=== PATIENT | female | born 1950 | race Caucasian/White ===

== ENCOUNTER → 2024-07-05 | Outpatient (CLI) | payer MEDICARE, MEDICAID, SELFPAY ==
[2024-07-05 10:09] LABS: Collection Type, Urine Clean Catch
[2024-07-05 10:36] LABS: Bilirubin,Urine Negative (Negative); Blood,Urine Negative (Negative); Clarity,Urine Clear (Clear/Hazy); Color,Urine Lt-Yellow (Lt Yel-Yel); Glucose, Urine Negative (Negative); Ketones,Urine Negative (Negative); Leukocyte Esterase,Urine Positive (Negative); Nitrite,Urine Negative (Negative); Protein,Urine 1+ (Neg - Trace); RBC,Urine 1 /hpf (0-3); Specific Gravity,Urine 1.017 (1.001-1.035); Squamous Epithelial Cell,Urine < 1 /hpf (0-5); Urobilinogen,Urine Negative mg/dL (0.0-1.0); WBC,Urine 2 /hpf (0-5)
[2024-07-05 10:47] LABS: Glucose Estimated Average 151 mg/dL (80-131); Hemoglobin A1C 6.9 % Hgb (4.8-6.0)
[2024-07-05 10:50] LABS: Parathyroid Hormone Intact 55.6 pg/ml (18.5-88.0)
[2024-07-05 10:54] LABS: Vitamin D 25 Hydroxy Total 86.5 ng/mL (7.3-40.2)
[2024-07-05 10:57] LABS: Albumin, Serum 4.3 gm/dL (3.4-4.8); Anion Gap 9 (7-16); BUN/Creatinine Ratio 26 Ratio (12-20); Blood Urea Nitrogen 34 mg/dL (9-23); Calcium 9.9 mg/dL (8.3-10.6); Calcium (Corrected) 9.9 mg/dL (8.5-10.1); Carbon Dioxide 25.9 mMol/L (20.0-31.0); Cardiac Risk Estimate 7.3 RATIO (3.7-5.6); Chloride 104 mMol/L (98-107); Cholesterol 248 mg/dL (132-200); Creatinine (Component) 1.3 mg/dL (0.6-1.3); Glucose 165 mg/dL (74-106); HDL Cholesterol 34 mg/dL (40-60); LDL Cholesterol,Calculated 184 mg/dL (0-130); Osmolality,Calculated 289 (275-295); Phosphorous 4.6 mg/dL (2.4-5.1); Potassium 4.7 mMol/L (3.4-5.1); Sodium 139 mMol/L (136-145); Triglycerides 148 mg/dL (30-150); eGFR 43 See Note
[2024-07-05 11:15] LABS: Creatinine MALB Rnd Ur 64 mg/dL (30-125); Microalbumin Creat Ratio 516 mg/gCrea (<30); Microalbumin, Random Urine 330 mg/L (0-300)
== END | disposition home or self-care (01) ==
LOC: COPL 09:17
PROVIDERS: PCP Internal Medicine; Referring Provider Internal Medicine; Visit Provider Internal Medicine
DX: I12.9 Hypertensive chronic kidney disease with stage 1 through stage 4 chronic kidney disease, or unspecified chronic kidney disease (principal); E11.22 Type 2 diabetes mellitus with diabetic chronic kidney disease; N18.30 Chronic kidney disease, stage 3 unspecified; E78.5 Hyperlipidemia, unspecified
CPT/HCPCS: 36415; 80061; 80069; 81001; 82043; 82306; 82570; 83036; 83970

== ENCOUNTER → 2024-07-13 | Outpatient (CLI) | payer MEDICARE, MEDICAID, SELFPAY ==
[2024-07-13 09:43] LABS: Anion Gap 8 (7-16); BUN/Creatinine Ratio 20 Ratio (12-20); Blood Urea Nitrogen 24 mg/dL (9-23); Calcium 9.2 mg/dL (8.3-10.6); Carbon Dioxide 24.6 mMol/L (20.0-31.0); Chloride 111 mMol/L (98-107); Creatinine (Component) 1.2 mg/dL (0.6-1.3); Glucose 94 mg/dL (74-106); Osmolality,Calculated 290 (275-295); Potassium 4.4 mMol/L (3.4-5.1); Sodium 144 mMol/L (136-145); eGFR 48 See Note
== END | disposition home or self-care (01) ==
PROVIDERS: PCP Internal Medicine; Referring Provider Internal Medicine; Visit Provider Internal Medicine
DX: I25.10 Atherosclerotic heart disease of native coronary artery without angina pectoris (principal); E78.5 Hyperlipidemia, unspecified
CPT/HCPCS: 36415; 80048

== ENCOUNTER → 2024-08-07 | Outpatient (CLI) | payer MEDICARE, MEDICAID, SELFPAY | END | disposition home or self-care (01) | PROVIDERS: PCP Internal Medicine; Referring Provider Internal Medicine; Visit Provider Internal Medicine | DX: Z53.8 Procedure and treatment not carried out for other reasons (principal) ==

== ENCOUNTER → 2024-08-14 | Outpatient (CLI) | payer MEDICARE, MEDICAID, SELFPAY ==
[2024-08-14 10:54] LABS: Anion Gap 7 (7-16); BUN/Creatinine Ratio 23 Ratio (12-20); Blood Urea Nitrogen 27 mg/dL (9-23); Calcium 9.6 mg/dL (8.3-10.6); Carbon Dioxide 24.5 mMol/L (20.0-31.0); Chloride 109 mMol/L (98-107); Creatinine (Component) 1.2 mg/dL (0.6-1.3); Glucose 137 mg/dL (74-106); Osmolality,Calculated 286 (275-295); Potassium 4.8 mMol/L (3.4-5.1); Sodium 140 mMol/L (136-145); eGFR 48 See Note
== END | disposition home or self-care (01) ==
LOC: COPL 09:43
PROVIDERS: PCP Internal Medicine; Referring Provider Internal Medicine; Visit Provider Internal Medicine
DX: I25.10 Atherosclerotic heart disease of native coronary artery without angina pectoris (principal); E78.5 Hyperlipidemia, unspecified
CPT/HCPCS: 36415; 80048

== ENCOUNTER → 2024-08-18 | Outpatient (CLI) | payer MEDICARE, MEDICAID, SELFPAY | END | disposition home or self-care (01) | LOC: SCAT 12:21 | PROVIDERS: PCP Internal Medicine; Referring Provider Internal Medicine; Visit Provider Internal Medicine | DX: Z53.8 Procedure and treatment not carried out for other reasons (principal) ==

== ENCOUNTER → 2024-08-28 | Outpatient (CLI) | payer MEDICARE, MEDICAID, SELFPAY ==
[2024-08-28 09:28] LABS: Basophils # (Auto) 0.1 Thou/mm3 (0.0-0.2); Basophils % (Auto) 2 % (0-2.5); Eosinophils # (Auto) 0.6 Thou/mm3 (0.0-0.5); Eosinophils % (Auto) 8 % (0-10); Hematocrit 36.6 % (36.0-46.0); Hemoglobin 12.3 g/dL (12.0-16.0); Immature Granulocytes % (Auto) 1 % (0-0); Immature Granulocytes Auto 0.04 Thou/mm3 (0.00-0.00); Lymphocytes # (Auto) 2.7 Thou/mm3 (1.0-4.8); Lymphocytes % (Auto) 36 % (10-50); Mean Corpuscular HGB Conc 33.6 g/dl (31.0-37.0); Mean Corpuscular Hemoglobin 31.5 pg (25.0-35.0); Mean Corpuscular Volume 94 fL (80-100); Monocytes # (Auto) 0.8 Thou/mm3 (0.0-0.8); Monocytes % (Auto) 10 % (0-12); Neutrophils # (Auto) 3.3 Thou/mm3 (1.8-7.7); Neutrophils % (Auto) 45 % (37-80); Nucleated Red Blood Cell % 0 /100 WBC (0); Platelet Count 315 Thou/mm3 (140-440); RDW Standard Deviation 44.6 fL (36.4-46.3); White Blood Count 7.5 Thou/mm3 (3.6-11.0)
[2024-08-28 09:31] LABS: Collection Type, Urine Clean Catch
[2024-08-28 09:54] LABS: Vitamin B12 833 pg/mL (211-911); Vitamin D 25 Hydroxy Total 51.2 ng/mL (7.3-40.2)
[2024-08-28 10:12] LABS: Alanine Aminotransferase 10 U/L (10-49); Albumin, Serum 3.8 gm/dL (3.4-4.8); Albumin/Globulin Ratio 1.4 (1.2-2.2); Alkaline Phosphatase 68 U/L (46-116); Anion Gap 6 (7-16); Aspartate Amino Transferase < 8 U/L (0-34); BUN/Creatinine Ratio 24 Ratio (12-20); Bilirubin,Total 0.2 mg/dL (0.3-1.2); Blood Urea Nitrogen 29 mg/dL (9-23); Calcium 9.5 mg/dL (8.3-10.6); Calcium (Corrected) 9.7 mg/dL (8.5-10.1); Carbon Dioxide 25.4 mMol/L (20.0-31.0); Cardiac Risk Estimate 6.6 RATIO (3.7-5.6); Chloride 106 mMol/L (98-107); Cholesterol 263 mg/dL (132-200); Creatinine (Component) 1.2 mg/dL (0.6-1.3); Globulin 2.7 gm/dL (2.3-3.5); Glucose 132 mg/dL (74-106); HDL Cholesterol 40 mg/dL (40-60); LDL Cholesterol,Calculated 185 mg/dL (0-130); Osmolality,Calculated 281 (275-295); Potassium 4.9 mMol/L (3.4-5.1); Sodium 137 mMol/L (136-145); Thyroid Stimulating Hormone 5.09 uIU/mL (0.55-4.78); Total Protein 6.5 gm/dL (5.7-8.2); Triglycerides 192 mg/dL (30-150); Uric Acid 6.2 mg/dL (3.1-7.8); eGFR 48 See Note
[2024-08-28 10:29] LABS: Bilirubin,Urine Negative (Negative); Blood,Urine Negative (Negative); Clarity,Urine Clear (Clear/Hazy); Color,Urine Colorless (Lt Yel-Yel); Glucose, Urine 1+ (Negative); Ketones,Urine Negative (Negative); Leukocyte Esterase,Urine Negative (Negative); Nitrite,Urine Negative (Negative); Protein,Urine 1+ (Neg - Trace); RBC,Urine < 1 /hpf (0-3); Specific Gravity,Urine 1.015 (1.001-1.035); Squamous Epithelial Cell,Urine < 1 /hpf (0-5); Urobilinogen,Urine Negative mg/dL (0.0-1.0); WBC,Urine < 1 /hpf (0-5)
[2024-08-28 11:02] LABS: Creatinine MALB Rnd Ur 65 mg/dL (30-125); Microalbumin Creat Ratio 658 mg/gCrea (<30); Microalbumin, Random Urine 428 mg/L (0-300)
[2024-08-28 11:15] LABS: Glucose Estimated Average 169 mg/dL (80-131); Hemoglobin A1C 7.5 % Hgb (4.8-6.0)
== END | disposition home or self-care (01) ==
LOC: COPL 08:33
PROVIDERS: PCP Internal Medicine; Referring Provider Internal Medicine; Visit Provider Internal Medicine
DX: Z00.00 Encounter for general adult medical examination without abnormal findings (principal); E11.9 Type 2 diabetes mellitus without complications; E78.5 Hyperlipidemia, unspecified; I10 Essential (primary) hypertension
CPT/HCPCS: 36415; 80053; 80061; 81001; 82043; 82306; 82570; 82607; 83036; 84443; 84550; 85025

== ENCOUNTER → 2024-09-01 | Outpatient (CLI) | payer MEDICARE, MEDICAID, SELFPAY ==
--- NOTE | 2024-09-01 13:16 | XR_ITS ---
Examination: Carotid arterial duplex scan, ultrasound. Date and time of exam: September 01, 2024 1333 hours INDICATIONS: Dizziness episodes one year post CVA Technique: Multiple sonographic images have been obtained of the carotid arteries and vertebral arteries, B-mode/grayscale imaging and Doppler spectral analysis and color flow Peak systolic and diastolic velocities have been recorded. Systolic diastolic ratios have been calculated. Findings: Right peak systolic velocities: Distal internal carotid artery peak systolic velocity is 0.73 M/sec Proximal internal carotid artery peak systolic velocity is 0.65 M/sec Carotid bifurcation peak systolic velocity is 1.1 M/sec External carotid artery peak systolic velocity is 0.9 M/sec Vertebral artery flow is antegrade. Left peak systolic velocities: Distal internal carotid artery peak systolic velocity is 1.05 M/sec Proximal internal carotid artery peak systolic velocity is 2.0 M/sec Carotid bifurcation peak systolic velocity is 1.0 M/sec External carotid artery peak systolic velocity is 1.4 M/sec Vertebral artery flow is antegrade Doppler waveform analysis demonstrates bilateral spectral broadening Impression: Right internal carotid artery demonstrates 30-50% stenosis. Left internal carotid artery demonstrates 70-90% stenosis.
== END | disposition home or self-care (01) ==
LOC: SDIM 13:10
PROVIDERS: PCP Internal Medicine; Referring Provider Internal Medicine; Visit Provider Internal Medicine
DX: I65.23 Occlusion and stenosis of bilateral carotid arteries (principal)
CPT/HCPCS: 93880

== ENCOUNTER → 2024-10-09 | Outpatient (CLI) | payer MEDICARE, MEDICAID, SELFPAY ==
[2024-10-09 09:21] LABS: Collection Type, Urine Clean Catch
[2024-10-09 09:44] LABS: Bilirubin,Urine Negative (Negative); Blood,Urine Negative (Negative); Clarity,Urine Clear (Clear/Hazy); Color,Urine Lt-Yellow (Lt Yel-Yel); Glucose, Urine 1+ (Negative); Hyaline Casts,Urine < 1 /hpf (0-1); Ketones,Urine Negative (Negative); Leukocyte Esterase,Urine Negative (Negative); Nitrite,Urine Negative (Negative); Protein,Urine 2+ (Neg - Trace); RBC,Urine 2 /hpf (0-3); Squamous Epithelial Cell,Urine < 1 /hpf (0-5); Urobilinogen,Urine Negative mg/dL (0.0-1.0); WBC,Urine 1 /hpf (0-5)
[2024-10-09 09:52] LABS: Albumin, Serum 4.3 gm/dL (3.4-4.8); Anion Gap 9 (7-16); BUN/Creatinine Ratio 24 Ratio (12-20); Blood Urea Nitrogen 29 mg/dL (9-23); Calcium 9.3 mg/dL (8.3-10.6); Calcium (Corrected) 9.3 mg/dL (8.5-10.1); Carbon Dioxide 20.7 mMol/L (20.0-31.0); Chloride 108 mMol/L (98-107); Creatinine (Component) 1.2 mg/dL (0.6-1.3); Glucose 199 mg/dL (74-106); Osmolality,Calculated 287 (275-295); Potassium 4.8 mMol/L (3.4-5.1); Sodium 138 mMol/L (136-145); eGFR 48 See Note
== END | disposition home or self-care (01) ==
LOC: COPL 08:45
PROVIDERS: PCP Internal Medicine; Referring Provider Internal Medicine; Visit Provider Internal Medicine
DX: E11.22 Type 2 diabetes mellitus with diabetic chronic kidney disease (principal); N18.30 Chronic kidney disease, stage 3 unspecified
CPT/HCPCS: 36415; 80069; 81001; 83970

== ENCOUNTER → 2024-12-05 | Outpatient (CLI) | payer MEDICARE, MEDICAID, SELFPAY ==
--- NOTE | 2024-12-05 13:00 | XR_ITS ---
Examination: CTA carotids with intravenous contrast CTA brain, head with intravenous contrast. 2-D sagittal, coronal reconstructions. 3-D reconstructions. 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 2-D sagittal, coronal reconstructions. 3-D reconstructions, 3-D post processing including vascular maximum intensity projection images. Low dose protocols were performed. One or more of the following dose reduction techniques were used; automated exposure control, adjustment of the mA and/or KV according to patient size, use of iterative reconstruction technique. Findings: 30% stenosis distal right common carotid artery No significant stenosis right carotid bifurcation or right internal carotid artery 60% stenosis left carotid bifurcation 90% stenosis proximal left internal carotid artery, axial image 112 extending over a distance of 13 mm Codominant vertebral arteries with no significant stenoses No cerebral large vessel arterial occlusions or thrombus IMPRESSION: 90% stenosis proximal left internal carotid artery over a distance of 13 mm
== END | disposition home or self-care (01) ==
LOC: SCAT 12:57
PROVIDERS: PCP Internal Medicine; Referring Provider Surgery Vascular Surgery; Visit Provider Surgery Vascular Surgery
DX: I65.22 Occlusion and stenosis of left carotid artery (principal)
CPT/HCPCS: 70498; A4649; Q9967

== ENCOUNTER → 2024-12-18 | Outpatient (CLI) | payer MEDICARE, MEDICAID, SELFPAY ==
[2024-12-18 08:45] LABS: Collection Type, Urine Clean Catch
[2024-12-18 09:10] LABS: Basophils # (Auto) 0.1 Thou/mm3 (0.0-0.2); Basophils % (Auto) 1 % (0-2.5); Eosinophils # (Auto) 0.4 Thou/mm3 (0.0-0.5); Eosinophils % (Auto) 4 % (0-10); Hematocrit 37.3 % (36.0-46.0); Hemoglobin 13.0 g/dL (12.0-16.0); Immature Granulocytes Auto 0.05 Thou/mm3 (0.00-0.00); Lymphocytes # (Auto) 2.7 Thou/mm3 (1.0-4.8); Lymphocytes % (Auto) 25 % (10-50); Mean Corpuscular HGB Conc 34.9 g/dl (31.0-37.0); Mean Corpuscular Hemoglobin 31.5 pg (25.0-35.0); Mean Corpuscular Volume 90 fL (80-100); Monocytes # (Auto) 0.8 Thou/mm3 (0.0-0.8); Monocytes % (Auto) 7 % (0-12); Neutrophils # (Auto) 7.0 Thou/mm3 (1.8-7.7); Neutrophils % (Auto) 63 % (37-80); Nucleated Red Blood Cell # 0.00 Thou/mm3 (0.00-0.00); Nucleated Red Blood Cell % 0 /100 WBC (0); Platelet Count 253 Thou/mm3 (140-440); RDW Standard Deviation 45.4 fL (36.4-46.3); Red Blood Count 4.13 Miln/mm3 (4.00-5.20); White Blood Count 11.0 Thou/mm3 (3.6-11.0)
[2024-12-18 09:26] LABS: Glucose Estimated Average 171 mg/dL (80-131); Hemoglobin A1C 7.6 % Hgb (4.8-6.0)
[2024-12-18 09:40] LABS: Alanine Aminotransferase 8 U/L (10-49); Albumin, Serum 4.0 gm/dL (3.4-4.8); Albumin/Globulin Ratio 1.5 (1.2-2.2); Alkaline Phosphatase 62 U/L (46-116); Anion Gap 10 (7-16); Aspartate Amino Transferase 10 U/L (0-34); BUN/Creatinine Ratio 19 Ratio (12-20); Bilirubin,Total 0.3 mg/dL (0.3-1.2); Blood Urea Nitrogen 23 mg/dL (9-23); Calcium 9.3 mg/dL (8.3-10.6); Calcium (Corrected) 9.3 mg/dL (8.5-10.1); Carbon Dioxide 21.8 mMol/L (20.0-31.0); Cardiac Risk Estimate 7.3 RATIO (3.7-5.6); Chloride 109 mMol/L (98-107); Cholesterol 279 mg/dL (132-200); Creatinine (Component) 1.2 mg/dL (0.6-1.3); Globulin 2.7 gm/dL (2.3-3.5); Glucose 99 mg/dL (74-106); HDL Cholesterol 38 mg/dL (40-60); LDL Cholesterol,Calculated 209 mg/dL (0-130); Osmolality,Calculated 284 (275-295); Potassium 3.9 mMol/L (3.4-5.1); Sodium 141 mMol/L (136-145); Total Protein 6.7 gm/dL (5.7-8.2); Triglycerides 161 mg/dL (30-150); eGFR 48 See Note
[2024-12-18 09:41] LABS: Creatinine MALB Rnd Ur 81 mg/dL (30-125)
[2024-12-18 09:58] LABS: Microalbumin Creat Ratio 869 mg/gCrea (<30); Microalbumin, Random Urine 704 mg/L (0-300)
[2024-12-18 10:46] LABS: Bilirubin,Urine Negative (Negative); Blood,Urine Negative (Negative); Clarity,Urine Clear (Clear/Hazy); Color,Urine Lt-Yellow (Lt Yel-Yel); Glucose, Urine 4+ (Negative); Ketones,Urine Trace (Negative); Leukocyte Esterase,Urine Negative (Negative); Nitrite,Urine Negative (Negative); PH,Urine 6.0 (5.0-7.0); Protein,Urine 1+ (Neg - Trace); RBC,Urine 1 /hpf (0-3); Specific Gravity,Urine 1.018 (1.001-1.035); Squamous Epithelial Cell,Urine < 1 /hpf (0-5); Urobilinogen,Urine Negative mg/dL (0.0-1.0); WBC,Urine 2 /hpf (0-5)
== END | disposition home or self-care (01) ==
LOC: COPL 08:21
PROVIDERS: PCP Internal Medicine; Referring Provider Internal Medicine; Visit Provider Internal Medicine
DX: E11.9 Type 2 diabetes mellitus without complications (principal); I10 Essential (primary) hypertension; E78.5 Hyperlipidemia, unspecified
CPT/HCPCS: 36415; 80053; 80061; 81001; 82043; 82570; 83036; 85025

== ENCOUNTER → 2024-12-21 | Outpatient (CLI) | payer MEDICARE, MEDICAID, SELFPAY ==
[2024-12-21 11:45] LABS: OBS Card Expiration Date 2028/02/28; OBS Performed By LAB; OBS QC OK? Yes
[2024-12-21 12:06] LABS: OBS Developer Lot # 551749; Occult Blood, Stool Negative (Negative); Occult Blood, Stool #2 Negative (Negative); Occult Blood, Stool #3 Negative (Negative)
== END | disposition home or self-care (01) ==
LOC: SLDO 11:40
PROVIDERS: Referring Provider Internal Medicine; Visit Provider Internal Medicine
DX: Z12.11 Encounter for screening for malignant neoplasm of colon (principal)
CPT/HCPCS: 82270

== ENCOUNTER 2024-12-22 16:34 | Emergency (ER) | payer MEDICARE, MEDICAID, SELFPAY ==
[2024-12-22 16:47] VITALS: BMI 21.6
[2024-12-22 16:52] VITALS: BP 175/68; PULSE 64; RESP 16; TEMP 37.1; O2SAT 96
--- NOTE | 2024-12-22 16:55 | PD.EDRME ---
Rapid Medical Screening Exam RME Arrival date/time: 12/22/24 16:34 74-year-old female with a history of hypertension, type 2 diabetes, and nephrectomy, presents to the emergency room with a chief complaint of urinary retention and dysuria x 1 days I have greeted and performed a focused initial assessment of this patient. A comprehensive ED assessment and evaluation of the patient, analysis of all test results, and completion of the medical decision making process will be conducted by additional ED providers. Chief Complaint: Abdominal Pain Vital signs: Vital Signs Temperature 98.7 F 12/22/24 16:52 Pulse Rate 64 12/22/24 16:52 Respiratory Rate 16 12/22/24 16:52 Blood Pressure 175/68 H 12/22/24 16:52 Pulse Oximetry (%) 96 12/22/24 16:52 Oxygen Delivery Method Room Air 12/22/24 16:52 Vital signs reviewed by provider: Yes
[2024-12-22 17:13] LABS: Basophils # (Auto) 0.1 Thou/mm3 (0.0-0.2); Basophils % (Auto) 1 % (0-2.5); Eosinophils # (Auto) 0.6 Thou/mm3 (0.0-0.5); Eosinophils % (Auto) 6 % (0-10); Hematocrit 37.6 % (36.0-46.0); Hemoglobin 12.6 g/dL (12.0-16.0); Immature Granulocytes Auto 0.04 Thou/mm3 (0.00-0.00); Lymphocytes # (Auto) 2.6 Thou/mm3 (1.0-4.8); Lymphocytes % (Auto) 24 % (10-50); Mean Corpuscular HGB Conc 33.5 g/dl (31.0-37.0); Mean Corpuscular Hemoglobin 31.3 pg (25.0-35.0); Mean Corpuscular Volume 94 fL (80-100); Monocytes # (Auto) 0.7 Thou/mm3 (0.0-0.8); Monocytes % (Auto) 7 % (0-12); Neutrophils # (Auto) 6.5 Thou/mm3 (1.8-7.7); Neutrophils % (Auto) 62 % (37-80); Nucleated Red Blood Cell # 0.00 Thou/mm3 (0.00-0.00); Nucleated Red Blood Cell % 0 /100 WBC (0); Platelet Count 269 Thou/mm3 (140-440); RDW Standard Deviation 48.4 fL (36.4-46.3); Red Blood Count 4.02 Miln/mm3 (4.00-5.20); White Blood Count 10.6 Thou/mm3 (3.6-11.0)
[2024-12-22 17:48] LABS: Alanine Aminotransferase 9 U/L (10-49); Albumin, Serum 3.8 gm/dL (3.4-4.8); Albumin/Globulin Ratio 1.4 (1.2-2.2); Alkaline Phosphatase 69 U/L (46-116); Anion Gap 12 (7-16); Aspartate Amino Transferase 10 U/L (0-34); BUN/Creatinine Ratio 14 Ratio (12-20); Bilirubin,Total 0.2 mg/dL (0.3-1.2); Blood Urea Nitrogen 22 mg/dL (9-23); Calcium 9.1 mg/dL (8.3-10.6); Calcium (Corrected) 9.3 mg/dL (8.5-10.1); Carbon Dioxide 23.3 mMol/L (20.0-31.0); Chloride 106 mMol/L (98-107); Creatinine (Component) 1.6 mg/dL (0.6-1.3); Estimated Creatinine Clearance 27.8 mL/min (>60); Globulin 2.8 gm/dL (2.3-3.5); Glucose 192 mg/dL (74-106); Lipase 44 U/L (12-53); Osmolality,Calculated 289 (275-295); Potassium 4.1 mMol/L (3.4-5.1); Sodium 141 mMol/L (136-145); Total Protein 6.6 gm/dL (5.7-8.2); eGFR 34 See Note
[2024-12-22 17:53] LABS: Collection Type, Urine Clean Catch
[2024-12-22 18:01] LABS: Bilirubin,Urine Negative (Negative); Blood,Urine Negative (Negative); Budding Yeast,Urine Present; Clarity,Urine Clear (Clear/Hazy); Color,Urine Lt-Yellow (Lt Yel-Yel); Glucose, Urine 2+ (Negative); Ketones,Urine 1+ (Negative); Leukocyte Esterase,Urine Positive (Negative); Nitrite,Urine Negative (Negative); PH,Urine 6.5 (5.0-7.0); Protein,Urine 2+ (Neg - Trace); RBC,Urine 2 /hpf (0-3); Specific Gravity,Urine 1.022 (1.001-1.035); Squamous Epithelial Cell,Urine 1 /hpf (0-5); Urobilinogen,Urine Negative mg/dL (0.0-1.0); WBC,Urine 37 /hpf (0-5)
--- NOTE | 2024-12-22 19:10 | PD.EDADULT ---
ED General RME/HPI General Chief complaint: Abdominal Pain Stated complaint: UNABLE TO URINATE, UTI SINCE LAST WEEK Time Seen by Provider: 12/22/24 18:16 Arrival date/time: 12/22/24 16:34 RME / HPI RME / HPI narrative: 74-year-old female with a history of hypertension, type 2 diabetes, and nephrectomy, presents to the emergency room with a chief complaint of urinary retention and dysuria x 1 days. Severity of symptoms mild. Patient denies any fever denies any vomiting denies any abdominal pain. Patient was seen by her PCP and was started on Macrobid. Related Data Home Medications ?Medication ?Instructions ?Recorded ?Confirmed albuterol sulfate 90 mcg/actuation 2 puff inhalation Q6H PRN 07/15/17 05/25/22 aerosol inhaler (Ventolin HFA) Shortness Of Breath glipizide 5 mg tablet 5 mg PO BID 07/15/17 05/25/22 sitagliptin phosphate 100 mg 100 mg PO QDAY 07/15/17 05/25/22 tablet (Januvia) levothyroxine 25 mcg capsule 50 mcg PO QDAY 12/26/18 05/25/22 insulin detemir U-100 100 unit/mL 40 unit subcut HS 04/18/19 05/25/22 subcutaneous solution (Levemir U-100 Insulin) metformin 500 mg tablet 500 mg PO QDAY 04/18/19 05/25/22 Previous Rx's ?Medication ?Instructions ?Recorded amlodipine 5 mg tablet 5 mg PO QDAY #30 tabs 07/08/19 amoxicillin 875 mg-potassium 1 tab PO BID #10 tabs 07/08/19 clavulanate 125 mg tablet (Augmentin) doxycycline hyclate 100 mg tablet 100 mg PO BID #10 tabs 07/08/19 lisinopril 10 mg tablet 10 mg PO QDAY #30 tabs 07/08/19 ciprofloxacin HCl 500 mg tablet 500 mg PO BID #20 tabs 05/09/23 (Cipro) metronidazole 500 mg tablet 500 mg PO TID #21 tabs 05/09/23 Allergies Allergy/AdvReac Type Severity Reaction Status Date / Time bee venom protein (honey bee) Allergy Intermediate Swelling Verified 12/22/24 16:37 of Lip/Tongue/Throat iodine Allergy Mild Rash Verified 12/22/24 16:37 Review of Systems Review of Systems Narrative Review of Systems: Review of system reviewed and within normal limits except mentioned in HPI ED Exam Narrative Physical exam: VITAL SIGNS: Reviewed. GENERAL APPEARANCE: Alert and interactive, follows commands, no acute distress, HEAD AND FACE: Non-traumatic. ENT: PERRL, pink conjunctivitis, eyelid no trauma, Mucous membrane moist. NECK: Supple, nontender, no nuchal rigidity. CHEST: No tenderness, no crepitus, no paradoxical movement, no retractions. LUNGS: Clear, well ventilated, symmetric, no rales, no wheezing, no ronchi, no stridor, good breath sounds bilaterally. HEART: Regular rate, regular rhythm, no murmur, no gallops. ABDOMEN: Soft, positive bowel sounds, nondistended, no guarding, nontender, no rebound, no masses, RECTAL: Deferred. GENITAL: Deferred. NEUROLOGICAL: Gross motor function intact sensory function intact, Appropriate for age. MUSCULOSKELETAL: low back nontender, full range of motion. EXTREMITIES: Nontender, full range of motion. SKIN: Color pink, dry, no rash, no lacerations, no abrasions, no contusions. LYMPHATICS: Deferred. Course Quality Measures none Orders Category Date Time Status Ray [Urinary Catheter] QS Care 12/22/24 16:54 Active CBC Stat Lab 12/22/24 17:00 Completed CMP [Comprehensive Metabolic Panel] Stat Lab 12/22/24 17:00 Completed Lipase Stat Lab 12/22/24 17:00 Completed UA [Urinalysis] Stat Lab 12/22/24 17:46 Completed Urine Culture Stat Lab 12/22/24 17:46 Received Sodium Chloride 0.9% 1000 ml [Ns] 1,000 ml Med 12/22/24 19:09 Active IV 999 mls/hr cefTRIAXone [Rocephin] 1,000 mg Med 12/22/24 18:51 Discontinued Lidocaine 1% 20 ml [Xylocaine 1% 20 ML] 2.1 ml IM X1 cefTRIAXone/D5w 1gm IV premix [Rocephin/D5w 1gm IV Med 12/22/24 19:09 Discontinued premix] 1 gm in 50 ml IV X1 Vital Signs Vital signs: Vital Signs Temperature 98.7 F 12/22/24 16:52 Pulse Rate 64 12/22/24 16:52 Respiratory Rate 16 12/22/24 16:52 Blood Pressure 175/68 H 12/22/24 16:52 Pulse Oximetry (%) 96 12/22/24 16:52 Oxygen Delivery Method Room Air 12/22/24 16:52 Discharge Plan Plan Patient Disposition: HOME (Self Care) Discharge Disposition comment: Stable Prescriptions/Referrals Prescriptions/Med Rec: No Action metformin 500 mg Tablet 500 mg PO QDAY Levemir U-100 Insulin 100 unit/mL Solution 40 unit SUBCUT HS amlodipine 5 mg Tablet 5 mg PO QDAY Qty: 30 0RF lisinopril 10 mg tablet 10 mg PO QDAY Qty: 30 0RF amoxicillin-pot clavulanate [Augmentin] 875-125 mg tablet 1 tab PO BID Qty: 10 0RF doxycycline hyclate 100 mg tablet 100 mg PO BID Qty: 10 0RF albuterol sulfate [Ventolin HFA] 90 mcg/actuation Hfa Aerosol Inhaler 2 puff INHALATION Q6H PRN (Reason: Shortness Of Breath) glipizide 5 mg Tablet 5 mg PO BID Januvia 100 mg Tablet 100 mg PO QDAY levothyroxine 25 mcg Capsule 50 mcg PO QDAY ciprofloxacin HCl [Cipro] 500 mg tablet 500 mg PO BID Qty: 20 0RF metronidazole 500 mg tablet 500 mg PO TID Qty: 21 0RF Referrals: Felipe Haynes MD [Primary Care Provider] - In 1 week Problem List Clinical Impression: Urinary retention, UTI (urinary tract infection) Patient/Caregiver Discharge Instructions Discharge Activity: activity as tolerated Education Materials: Understanding Urinary Tract ... Additional Instructions: Thank you for the opportunity for serving you today. You are stable for discharged . You are advised to: Follow-up with your PCP this Wednesday regarding your Ray catheter. Return to ED for worsening of symptoms Increase oral fluids, including cranberry juice nonsugar Take medication as prescribed by your PCP Print Language: [place] Islander Stand Alone Forms: Ellen Award Info., Patient Portal Info Letter PA/HOOK UP Supervising Physician PA/KARISSA Supervising Physician: MD Lalitha MDM Narrative MDM hospital course: 74-year-old female with a history of hypertension, type 2 diabetes, and nephrectomy, presents to the emergency room with a chief complaint of urinary retention and dysuria x 1 days. Severity of symptoms mild. Patient denies any fever denies any vomiting denies any abdominal pain. Patient was seen by her PCP and was started on Macrobid. Patient's CBC came back unremarkable no leukocytosis noted. CMP showed creatinine of 1.6, BUN normal. Urinalysis positive for UTI. Patient received 1 L of IV fluids, IV ceftriaxone, and Ray catheter was inserted draining more than 500 cc of clear urine. Patient verbalized significant improvement of symptoms. Patient was advised to continue taking her Macrobid. Clinical Information Provided by patient Medical Records Reviewed None Labs/Rad/Tests considered, not Ordered Describe details: See results [facility] Chronic Illness/Social Conditions Add or document further as needed: Status post nephrectomy, diabetes mellitus hypertension EKG EKG not done Lab Interpretation Lab(s) interpretation(s): See results [facility] Imaging Imaging interpretation: none Medication Administration(s) Medication Administration History Sodium Chloride (Ns) 1,000 mls @ 999 mls/hr IV .Q1H1M ONE Stop: 12/22/24 20:09 Last Admin: 12/22/24 19:37 Dose: 999 mls/hr Documented By: OA Discontinued Medications Ceftriaxone Sodium 1,000 mg/ (Lidocaine HCl 2.1 ml) 0 mg IM X1 ONE Stop: 12/22/24 18:52 Ceftriaxone Sodium/Dextrose (Rocephin/D5w 1gm Iv Premix) 1 gm in 50 mls @ 100 mls/hr IV X1 ONE Stop: 12/22/24 19:38 Last Admin: 12/22/24 19:50 Dose: 100 mls/hr Documented By: VL IV fluids, ceftriaxone IV, Ray catheter inserted Diagnosis Differential diagnosis: Acute urinary retention, UTI, dehydration Differential dx and/or dx ruled out: Acute urinary retention, UTI Dispositon Disposition: Discharge Home
[2024-12-22] MEDS: SODIUM CHLORIDE 0.9% 1000 ML 1,000 ML 999 ML IV (19:37)
[2024-12-22] MEDS: cefTRIAXone/D5w 1gm IV premix 1 GM/50 ML BAG IV (19:50)
[2024-12-22 21:11] VITALS: BP 221/68; PULSE 59
[2024-12-22] MEDS: hydrALAZINE INJ 20 MG/ML VIAL IVP (21:11)
[2024-12-22 21:16] VITALS: BP 212/68; PULSE 58; RESP 16; TEMP 36.9; O2SAT 97
== END 2024-12-22 21:56 | disposition home or self-care (01) ==
PROVIDERS: Nurse Practitioner Family; Emergency Provider Emergency Medicine; PCP Internal Medicine
DX: N39.0 Urinary tract infection, site not specified (principal)
CPT/HCPCS: 51702; 36415; 80053; 81001; 83690; 85025; 87086; 96365; 96375; 99283; J0360; J0696; J7030

== ENCOUNTER 2024-12-23 00:18 | Emergency (ER) | payer MEDICARE, MEDICAID, SELFPAY ==
[2024-12-23 00:26] VITALS: BMI 21.6
[2024-12-23 00:45] VITALS: BP 160/63; PULSE 76; RESP 16; TEMP 36.7; O2SAT 98; BMI 21.6
--- NOTE | 2024-12-23 02:24 | PD.EDFMALE ---
ED Female Urogenital RME/HPI General Stated complaint: CABALLERO CATH PAINFUL Time Seen by Provider: 12/23/24 02:28 Arrival date/time: 12/23/24 00:18 RME / HPI RME / HPI Narrative: This section includes all my notes and documentations, including HPI, PE, and ED course. Paulo Doty MD HPI: 74 y/o female with Hx of Renal Disease and Type II DM here requesting removal of caballero catheter. Patient was seen here yesterday approximately 12 hours ago and had a caballero placed due to urinary retention for x 1.5 days. ABX given for UTI as well. Patient feels discomfort and is requesting to have it removed. No other complaints. ROS: All negative except as documented in HPI. Physical Exam: General: Alert and oriented. Eyes: Conjunctivae and lids clear. ENT: No nasal congestion. Neck: Supple. Lungs: No respiratory distress. Skin: Warm and dry. Neuro: Alert and oriented X 3. At this point, diagnoses include: UTI, Urinary retention. Recommended not removing the Caballero catheter. Discussed risks, including urinary retention and needing Caballero catheter again. Patient understood but still requested removing the catheter. Treatment here included: Removal of caballero catheter. Prescribed cefdinir and recommended outpatient management. Based on my best medical judgment, made decision no further evaluation or treatment indicated at this time. Patient understands and agrees to the discharge instructions customized and printed, see below. Discharge instructions from Dr. Doty: 1. We recommended not removing your urinary catheter. Because you will most likely have urinary retention again. But since you still requested to remove it, it was removed. 2. Take cefdinir to kill the germs causing the infection.? Increase oral fluid to flush it out.? Maintain clear urine.? If dark or yellow, increase oral fluid. 3. Zofran for nausea/vomiting.? 4. See a private doctor on 12/25/2024 for recheck.? Ask to check the final urine culture results from today to make sure cefdinir doesn't need to be changed due to resistance. 5. Seek immediate medical care with urinary retention, fever, or with any concerns. Paulo Doty MD Related Data Home Medications ?Medication ?Instructions ?Recorded ?Confirmed albuterol sulfate 90 mcg/actuation 2 puff inhalation Q6H PRN 07/15/17 05/25/22 aerosol inhaler (Ventolin HFA) Shortness Of Breath glipizide 5 mg tablet 5 mg PO BID 07/15/17 05/25/22 sitagliptin phosphate 100 mg 100 mg PO QDAY 07/15/17 05/25/22 tablet (Januvia) levothyroxine 25 mcg capsule 50 mcg PO QDAY 12/26/18 05/25/22 insulin detemir U-100 100 unit/mL 40 unit subcut HS 04/18/19 05/25/22 subcutaneous solution (Levemir U-100 Insulin) metformin 500 mg tablet 500 mg PO QDAY 04/18/19 05/25/22 Previous Rx's ?Medication ?Instructions ?Recorded amlodipine 5 mg tablet 5 mg PO QDAY #30 tabs 07/08/19 amoxicillin 875 mg-potassium 1 tab PO BID #10 tabs 07/08/19 clavulanate 125 mg tablet (Augmentin) doxycycline hyclate 100 mg tablet 100 mg PO BID #10 tabs 07/08/19 lisinopril 10 mg tablet 10 mg PO QDAY #30 tabs 07/08/19 ciprofloxacin HCl 500 mg tablet 500 mg PO BID #20 tabs 05/09/23 (Cipro) metronidazole 500 mg tablet 500 mg PO TID #21 tabs 05/09/23 cefdinir 300 mg capsule 300 mg PO BID #14 caps 12/23/24 ondansetron 4 mg disintegrating 4 mg PO TID PRN nausea and 12/23/24 tablet vomiting 30 days #10 tabs Allergies Allergy/AdvReac Type Severity Reaction Status Date / Time bee venom protein (honey bee) Allergy Intermediate Swelling Verified 12/23/24 00:31 of Lip/Tongue/Throat iodine Allergy Mild Rash Verified 12/23/24 00:31 Review of Systems Review of Systems Systems Reviewed: All systems reviewed, normal except as documented Past Medical History Past Medical History NEUROLOGIC: Positive Cerebrovascular Accident CARDIAC: Positive Cardiac Disorders, Hypercholesterolemia and Hypertension GASTROINTESTINAL: Positive Gastrointestinal Disorders, Gall Bladder Disease, Hemorrhoids and Gastroesophageal Reflux Disease GENITOURINARY: Positive Genitourinary Disorders and Renal Disease REPRODUCTIVE: Positive Previous Pregnancies and Uterine Prolapse MUSCULOSKELETAL: Positive Musculoskeletal Disorders, Arthritis, Osteoporosis, Degenerative Disk Disease and Fractures ENT: Positive Cataracts ENDOCRINE: Positive Endocrine Disorders, Diabetes Mellitus Type 2 and Hypothyroidism OTHER HISTORY: Positive Shingles, Chicken Pox and Lung Cancer Family History FAMILY HISTORY: Positive Family Cardiac Disorders, Family Cancer and Family Surgery Surgical History SURGICAL: Positive Cardiac Surgery, Angiogram, Abdominal Surgery, Gastric Bypass Surgery, Nephrectomy, Hysterectomy and Tubal Ligation ED Exam Narrative Physical exam: Refer to [facility] Course Quality Measures none Orders Category Date Time Status Miscellaneous Nursing Order NOW Care 12/23/24 02:19 Active Vital Signs Vital signs: Vital Signs Temperature 98.1 F 12/23/24 00:45 Pulse Rate 76 12/23/24 00:45 Respiratory Rate 16 12/23/24 00:45 Blood Pressure 160/63 H 12/23/24 00:45 Pulse Oximetry (%) 98 12/23/24 00:45 Oxygen Delivery Method Room Air 12/23/24 00:45 Urogenital - Female MDM Narrative MDM Narrative:: Scribe Attestation: Fernanda Alejandre, am scribing for and in the presence of Dr. Doty. Provider Notation: Although this document has been carefully reviewed, there may still be some phonetic and other typographical errors.? These errors are purely grammatical due to imperfections in the software program and should not be construed in any way to? compromise the substance of the patient's medical care during this visit. 74 y/o female with Hx of Renal Disease and Type II DM here requesting removal of caballero catheter. Patient was seen here yesterday approximately 12 hours ago and had a caballero placed due to urinary retention for x 1.5 days. ABX given for UTI as well. Patient feels discomfort and is requesting to have it removed. No other complaints. Patient data External records reviewed:: [facility] previous records (Reviewed prior ED records from 12/22/24. Patient was seen for UTI (urinary tract infection).) Clinical information provided by:: patient Social determinants that could affect healthcare access:: none Patient has the following chronic illnesses:: Cerebrovascular Accident, Hypercholesterolemia, Hypertension, Gall Bladder Disease, Hemorrhoids, Gastroesophageal Reflux Disease, Renal Disease, Uterine Prolapse, Arthritis, Osteoporosis, Degenerative Disk Disease, Cataracts, Diabetes Mellitus Type 2 and Hypothyroidism How is presenting disease/condition affected by chronic disease/condition?: exacerbated by Evaluation data The following diagnostics were reviewed and interpreted by me:: other (specify) (N/A) Lab and/or radiology exams considered but not ordered:: N/A Interpretation Summary: N/A Medications / Prescriptions Medications or Prescriptions considered but not ordered:: None Medication administrations:: N/A Consultations Consultation(s) initiated? (list below): No Diagnosis Urogenital Female Differential Diagnosis: urinary tract infection, cystitis and other (Pyelonephritis) Most likely diagnosis given after review of the tests above:: UTI, Urinary retention Admission Indicated Admission indicated?: not indicated Explain why admission is indicated or not indicated:: With no condition needing emergent intervention, there was no indication for admission. Admission Request Was there a request for admission?: No Disposition Plan Disposition Plan: Discharge Discharge Attestation Discharge Attestation: The patient and all family members were given an opportunity to ask questions and understood the discharge instructions. Discharge instructions specifically effects, indications for sooner follow up or return to the emergency department, and the expected course of current diagnosis. Patient condition: Stable Discharge Plan Plan Patient Disposition: HOME (Self Care) Prescriptions/Referrals Prescriptions/Med Rec: New cefdinir 300 mg capsule 300 mg PO BID Qty: 14 0RF ondansetron 4 mg tablet,disintegrating 4 mg PO TID PRN (Reason: nausea and vomiting) 30 Days Qty: 10 0RF No Action metformin 500 mg Tablet 500 mg PO QDAY Levemir U-100 Insulin 100 unit/mL Solution 40 unit SUBCUT HS amlodipine 5 mg Tablet 5 mg PO QDAY Qty: 30 0RF lisinopril 10 mg tablet 10 mg PO QDAY Qty: 30 0RF amoxicillin-pot clavulanate [Augmentin] 875-125 mg tablet 1 tab PO BID Qty: 10 0RF doxycycline hyclate 100 mg tablet 100 mg PO BID Qty: 10 0RF albuterol sulfate [Ventolin HFA] 90 mcg/actuation Hfa Aerosol Inhaler 2 puff INHALATION Q6H PRN (Reason: Shortness Of Breath) glipizide 5 mg Tablet 5 mg PO BID Januvia 100 mg Tablet 100 mg PO QDAY levothyroxine 25 mcg Capsule 50 mcg PO QDAY ciprofloxacin HCl [Cipro] 500 mg tablet 500 mg PO BID Qty: 20 0RF metronidazole 500 mg tablet 500 mg PO TID Qty: 21 0RF Problem List Clinical Impression: UTI (urinary tract infection), Urinary retention Patient/Caregiver Discharge Instructions Discharge Activity: activity as tolerated Education Materials: ED Urinary Retention, Female, ED CYSTITIS Female Adult Additional Instructions: Discharge instructions from Dr. Doty: 1. We recommended not removing your urinary catheter. Because you will most likely have urinary retention again. But since you still requested to remove it, it was removed. 2. Take cefdinir to kill the germs causing the infection.? Increase oral fluid to flush it out.? Maintain clear urine.? If dark or yellow, increase oral fluid. 3. Zofran for nausea/vomiting.? 4. See a private doctor on 12/25/2024 for recheck.? Ask to check the final urine culture results from today to make sure cefdinir doesn't need to be changed due to resistance. 5. Seek immediate medical care with urinary retention, fever, or with any concerns. Print Language: [place]yan Stand Alone Forms: Ellen Award Info., Patient Portal Info Letter
== END 2024-12-23 03:35 | disposition home or self-care (01) ==
LOC: SERX 03:06
PROVIDERS: Emergency Provider Emergency Medicine; PCP Internal Medicine
DX: Z46.6 Encounter for fitting and adjustment of urinary device (principal); N39.0 Urinary tract infection, site not specified; R33.9 Retention of urine, unspecified
CPT/HCPCS: 99283

== ENCOUNTER 2025-03-05 10:09 | Outpatient (RCR) | payer MEDICARE, MEDICAID, SELFPAY ==
--- NOTE | 2025-03-05 11:33 | PT.OIERPT ---
PT OP Initial Eval Patient Information Outpatient Physical Therapy Treatment Date: 03/05/25 Visit Reasons: BILATERAL LOWER EXTREMIITY WEAKNESS Medical Diagnosis: I63.9 Treatment Dx #1: BLE Weakness Treatment Dx #2: Difficulty Walking Start of Care: 03/05/25 Date of Onset: November 2023 Smoking Status Smoking Status: Never smoker Initial Assessment Subjective: Pt is a 75 y/o female reports of BLE weakness R>L since her CVA in November 2023. Pt also mentioned she was hospitalized for ~ 3 days for left carotid surgery about 1 month ago. Pt has weakness in her legs R>L leading to difficulty with standing, walking, stairs, squatting, balance, and performing recreational activities. Pt also reports of left hip and knee pain (5/10) limiting her from perform ADLs. Objective: BLE AROM: all motions are WFL BLE MMTs L: grossly 4-/5 R: 3+/5 Sit-Stand Test: 9 reps Gait Observation: step through with quad cane with trunk hyperextension with swing phase Assessment: Pt demonstrate BLE weakness R>L leading to difficulty with ADLs. Pt will benefit from physical therapy to increase mobility, strength, and work on overall endurance Short Term and Skilled Nursing Goals 1) Increase BLE AROM WNL in 9 wks to be able to perform chores 2) Increase BLE MMTs grossly to 4/5 in 9 wks to be able to walk more than 30 mins 3) Decrease left LE pain to 2/10 in 9 wks to be able to stand more than 30 mins 4) Increase sit to stand reps to 11 in 9 wks to improve overall BLE endurance ot be able to cook and clean 5) Indep with HEP Treatment Plan 1) Manual Therapy 2) Therapeutic Activities 3) Therapeutic Exercises 4) Modalities (ice, heat) 5) Balance Training 6) Gait Training Frequency and Duration: 2 x wk for 9 wks Certification Dates: 03/05/25 to 06/04/25 Procedure Charges OP PT Eval Mod Complex 30 minutes: Yes
== END 2025-03-06 23:59 | disposition home or self-care (01) ==
LOC: CPTX 10:09
PROVIDERS: PCP Internal Medicine; Referring Provider Psychiatry & Neurology Neurology; Visit Provider Psychiatry & Neurology Neurology
DX: I69.354 Hemiplegia and hemiparesis following cerebral infarction affecting left non-dominant side (principal); I69.351 Hemiplegia and hemiparesis following cerebral infarction affecting right dominant side; I69.398 Other sequelae of cerebral infarction; R26.89 Other abnormalities of gait and mobility; R26.2 Difficulty in walking, not elsewhere classified; M25.562 Pain in left knee; M25.552 Pain in left hip
CPT/HCPCS: 97162

== ENCOUNTER → 2025-03-08 | Outpatient (BNVA) | payer MEDICARE, MEDICAID, SELFPAY | END | disposition home or self-care (01) | PROVIDERS: PCP Internal Medicine; Referring Provider Internal Medicine; Visit Provider Urology | DX: N35.92 Unspecified urethral stricture, female (principal); N39.0 Urinary tract infection, site not specified; Z90.5 Acquired absence of kidney; K62.89 Other specified diseases of anus and rectum; Z87.440 Personal history of urinary (tract) infections; Z85.528 Personal history of other malignant neoplasm of kidney | CPT/HCPCS: 81003; 99212; G0463 ==

== ENCOUNTER → 2025-03-09 | Outpatient (CLI) | payer MEDICARE, MEDICAID, SELFPAY ==
[2025-03-09 09:10] LABS: Collection Type, Urine Clean Catch
[2025-03-09 09:35] LABS: Basophils # (Auto) 0.1 Thou/mm3 (0.0-0.2); Basophils % (Auto) 1 % (0-2.5); Eosinophils # (Auto) 0.5 Thou/mm3 (0.0-0.5); Eosinophils % (Auto) 6 % (0-10); Hematocrit 33.5 % (36.0-46.0); Hemoglobin 11.1 g/dL (12.0-16.0); Immature Granulocytes Auto 0.05 Thou/mm3 (0.00-0.00); Lymphocytes # (Auto) 2.8 Thou/mm3 (1.0-4.8); Lymphocytes % (Auto) 30 % (10-50); Mean Corpuscular HGB Conc 33.1 g/dl (31.0-37.0); Mean Corpuscular Hemoglobin 30.8 pg (25.0-35.0); Mean Corpuscular Volume 93 fL (80-100); Monocytes # (Auto) 0.9 Thou/mm3 (0.0-0.8); Monocytes % (Auto) 9 % (0-12); Neutrophils # (Auto) 5.0 Thou/mm3 (1.8-7.7); Neutrophils % (Auto) 54 % (37-80); Nucleated Red Blood Cell # 0.00 Thou/mm3 (0.00-0.00); Nucleated Red Blood Cell % 0 /100 WBC (0); Platelet Count 144 Thou/mm3 (140-440); RDW Standard Deviation 51.4 fL (36.4-46.3); Red Blood Count 3.60 Miln/mm3 (4.00-5.20); White Blood Count 9.3 Thou/mm3 (3.6-11.0)
[2025-03-09 09:42] LABS: Bilirubin,Urine Negative (Negative); Blood,Urine Negative (Negative); Clarity,Urine Clear (Clear/Hazy); Color,Urine Colorless (Lt Yel-Yel); Glucose, Urine Negative (Negative); Ketones,Urine Negative (Negative); Leukocyte Esterase,Urine Negative (Negative); Nitrite,Urine Negative (Negative); PH,Urine 6.0 (5.0-7.0); Protein,Urine 1+ (Neg - Trace); RBC,Urine 2 /hpf (0-3); Specific Gravity,Urine 1.015 (1.001-1.035); Squamous Epithelial Cell,Urine < 1 /hpf (0-5); Urobilinogen,Urine Negative mg/dL (0.0-1.0); WBC,Urine 1 /hpf (0-5)
[2025-03-09 09:52] LABS: Glucose Estimated Average 151 mg/dL (80-131); Hemoglobin A1C 6.9 % Hgb (4.8-6.0)
[2025-03-09 09:53] LABS: Creatinine MALB Rnd Ur 56 mg/dL (30-125)
[2025-03-09 10:06] LABS: Alanine Aminotransferase < 7 U/L (10-49); Albumin, Serum 4.1 gm/dL (3.4-4.8); Albumin/Globulin Ratio 1.8 (1.2-2.2); Alkaline Phosphatase 65 U/L (46-116); Anion Gap 11 (7-16); Aspartate Amino Transferase 12 U/L (0-34); BUN/Creatinine Ratio 23 Ratio (12-20); Bilirubin,Total 0.3 mg/dL (0.3-1.2); Blood Urea Nitrogen 28 mg/dL (9-23); Calcium 9.4 mg/dL (8.3-10.6); Calcium (Corrected) 9.4 mg/dL (8.5-10.1); Carbon Dioxide 21.8 mMol/L (20.0-31.0); Cardiac Risk Estimate 5.2 RATIO (3.7-5.6); Chloride 108 mMol/L (98-107); Cholesterol 258 mg/dL (132-200); Creatinine (Component) 1.2 mg/dL (0.6-1.3); Globulin 2.3 gm/dL (2.3-3.5); Glucose 109 mg/dL (74-106); HDL Cholesterol 50 mg/dL (40-60); LDL Cholesterol,Calculated 180 mg/dL (0-130); Osmolality,Calculated 287 (275-295); Potassium 4.7 mMol/L (3.4-5.1); Sodium 141 mMol/L (136-145); Total Protein 6.4 gm/dL (5.7-8.2); Triglycerides 142 mg/dL (30-150); eGFR 47 See Note
[2025-03-09 10:08] LABS: Microalbumin Creat Ratio 950 mg/gCrea (<30); Microalbumin, Random Urine 532 mg/L (0-300)
== END | disposition home or self-care (01) ==
LOC: COPL 08:25
PROVIDERS: PCP Internal Medicine; Referring Provider Internal Medicine; Visit Provider Internal Medicine
DX: E11.9 Type 2 diabetes mellitus without complications (principal); I10 Essential (primary) hypertension; E78.5 Hyperlipidemia, unspecified
CPT/HCPCS: 36415; 80053; 80061; 81001; 82043; 82570; 83036; 85025

== ENCOUNTER 2025-04-05 11:30 | Outpatient (RCR) | payer MEDICARE, MEDICAID, SELFPAY ==
--- NOTE | 2025-03-14 11:27 | PT.ODAYNRPT ---
PT Outpatient Daily Note OP Daily Note Outpatient Physical Therapy Treatment Date: 03/14/25 Assessment: Pt came to therapy session and mentioned she just came back from Dr Haynes's office and her blood pressure is 170-180's measured at the office. According to patient her blood pressure medication was changed after MD's consultation. Pt also notice her heart racing and gushing noise in her ears. MD is aware of the symptoms and no further recommendation made aside from change in medication. Pt's physical therapy session was withheld today and advised to head to ER if symptoms or BP worsen. Pt gave verbal consent and understanding. Pt will monitor BP once she gets home.
--- NOTE | 2025-03-20 12:07 | PTNOTE_ITS ---
PT Outpatient Daily Note OP Daily Note Outpatient Physical Therapy Treatment Date: 03/20/25 Subjective: Pt reports she forgot her cane today, shared she uses it becasue sometimes she feels her L knee buckle and R LE feels weak. Objective: Please see flow sheet for ther ex list. Assessment: Interventions given alternating sitting and standing to maximize pt participation. Plan: Continue with POC. Length of Time (minutes) of Treatment: 30 Minutes SKOOG PATCHING MACHINE OPERATOR Service Modifier Method I: Divide the number of min of care provided by the SKOOG PATCHING MACHINE OPERATOR/PRECISION FILER HAND by the total min of care provided then multiply by 100. If greater than 11 percent modifier is required. Method II: Divide the total time of care provided to patient by 10 (round to the nearest whole number) and add 1 min. to set the minimum time requirement. If treatment total was 60 min., then 10% of 6 min PT CQ modifier applied: CQ Modifier applied Procedure Charges Therapeutic Exercise 30 minutes: Yes
--- NOTE | 2025-03-27 13:55 | PT.ODAYNRPT ---
PT Outpatient Daily Note OP Daily Note Outpatient Physical Therapy Treatment Date: 03/27/25 Subjective: Pt wants to work on leg strength especially the knees. Pt has been more out of breath since her carotid surgery. Objective: Please see flow chart for list of ther ex performed Assessment: added 1# ankle weight to LAQ, knee curl, standing hip abduction exercises. Pt exhibit frequent mild SOB between exercises and advised to sit and rest for a few mins prior to resuming exercises Plan: Continue with PT Length of Time (minutes) of Treatment: 30 Minutes Procedure Charges Therapeutic Exercise 30 minutes: Yes
--- NOTE | 2025-03-29 13:06 | PT.ODAYNRPT ---
PT Outpatient Daily Note OP Daily Note Outpatient Physical Therapy Treatment Date: 03/29/25 Subjective: No new complaints or concerns. Objective: Please see flow sheet for the gilma list. Assessment: Pt demonstrates poor foot clearance during hurdles exercise, pt compensates by IR tibia and circumducting hip corrects post verbal cues. Plan: Continue with pOC. Length of Time (minutes) of Treatment: 30 Minutes Procedure Charges Therapeutic Exercise 30 minutes: Yes
--- NOTE | 2025-04-03 14:29 | PT.ODAYNRPT ---
PT Outpatient Daily Note <Clair Ortiz PTA - Last Filed: 04/03/25 14:30> OP Daily Note Outpatient Physical Therapy Treatment Date: 04/03/25 Subjective: No new complaints. Objective: Please see flow sheet for ther ex list. Assessment: Added interventions completed with fatigue, seated rest breaks given to pt for energy conservations. Plan: Continue with pOC . Length of Time (minutes) of Treatment: 30 Minutes <Alex Black PT - Last Filed: 04/03/25 14:34> STATIONARY PLANT OPERATORS Service Modifier PT CQ modifier applied: CQ Modifier applied Procedure Charges <Clair Ortiz STATIONARY PLANT OPERATORS - Last Filed: 04/03/25 14:30> Therapeutic Exercise 30 minutes: Yes
--- NOTE | 2025-04-05 12:54 | PTNOTE_ITS ---
PT Outpatient Daily Note OP Daily Note Outpatient Physical Therapy Treatment Date: 04/05/25 Subjective: No new complaints. Objective: Please see flow sheet for ther ex list. Assessment: Progression of interventions completed with good tolerance. Plan: Continue with POC. Length of Time (minutes) of Treatment: 30 Minutes MANAGER E LEARNING Service Modifier Method I: Divide the number of min of care provided by the MANAGER E LEARNING/DIRECTOR INTERNAL AUDIT by the total min of care provided then multiply by 100. If greater than 11 percent modifier is required. Method II: Divide the total time of care provided to patient by 10 (round to the nearest whole number) and add 1 min. to set the minimum time requirement. If treatment total was 60 min., then 10% of 6 min PT CQ modifier applied: CQ Modifier applied Procedure Charges Therapeutic Exercise 30 minutes: Yes
== END 2025-04-06 23:59 | disposition home or self-care (01) ==
LOC: CPTX 11:30
PROVIDERS: PCP Internal Medicine; Referring Provider Psychiatry & Neurology Neurology; Visit Provider Psychiatry & Neurology Neurology
DX: I69.354 Hemiplegia and hemiparesis following cerebral infarction affecting left non-dominant side (principal); I69.351 Hemiplegia and hemiparesis following cerebral infarction affecting right dominant side; R26.2 Difficulty in walking, not elsewhere classified; R26.89 Other abnormalities of gait and mobility; M25.562 Pain in left knee; M25.552 Pain in left hip
CPT/HCPCS: 97110

== ENCOUNTER → 2025-04-20 | Outpatient (CLI) | payer MEDICARE, MEDICAID, SELFPAY ==
[2025-04-20 11:06] LABS: Albumin, Serum 4.2 gm/dL (3.4-4.8); Anion Gap 11 (7-16); BUN/Creatinine Ratio 18 Ratio (12-20); Blood Urea Nitrogen 22 mg/dL (9-23); Calcium 9.2 mg/dL (8.3-10.6); Calcium (Corrected) 9.2 mg/dL (8.5-10.1); Carbon Dioxide 22.9 mMol/L (20.0-31.0); Chloride 109 mMol/L (98-107); Creatinine (Component) 1.2 mg/dL (0.6-1.3); Glucose 92 mg/dL (74-106); Osmolality,Calculated 288 (275-295); Phosphorous 3.8 mg/dL (2.4-5.1); Potassium 4.8 mMol/L (3.4-5.1); Sodium 143 mMol/L (136-145); eGFR 47 See Note
== END | disposition home or self-care (01) ==
LOC: COPL 09:18
PROVIDERS: PCP Internal Medicine; Referring Provider Internal Medicine; Visit Provider Internal Medicine
DX: N17.9 Acute kidney failure, unspecified (principal)
CPT/HCPCS: 36415; 80069

== ENCOUNTER 2025-04-25 11:30 | Outpatient (RCR) | payer MEDICARE, MEDICAID, SELFPAY ==
--- NOTE | 2025-04-09 14:52 | PT.ODAYNRPT ---
PT Outpatient Daily Note OP Daily Note Outpatient Physical Therapy Treatment Date: 04/09/25 Visit Reasons: Bilateral leg pain Subjective: Pt reports she was sore after last session. Objective: Please see flow sheet for ther ex list. Assessment: Interventions given alternating sitting and standing. Plan: Continue with poC. Length of Time (minutes) of Treatment: 30 Minutes FARM APPRAISER Service Modifier Method I: Divide the number of min of care provided by the FARM APPRAISER/INCLUSION SPECIALIST by the total min of care provided then multiply by 100. If greater than 11 percent modifier is required. Method II: Divide the total time of care provided to patient by 10 (round to the nearest whole number) and add 1 min. to set the minimum time requirement. If treatment total was 60 min., then 10% of 6 min PT CQ modifier applied: CQ Modifier applied Procedure Charges Therapeutic Exercise 30 minutes: Yes
--- NOTE | 2025-04-12 15:45 | PT.ODS1RPT ---
PT OP Progress/Discharge Note Date of Service: 04/12/25 Progress Note/DC Note Progress Note/Discharge Note: Progress Note Patient Information Visit Reasons: Bilateral leg pain Medical Diagnosis: I63.9 Treatment Dx #1: BLE Weakness Treatment Dx #2: Difficulty Walking Service Continue Service or Discharge: Continue Service Certification Date Certification Dates: 04/12/25 to 07/13/25 Status Subjective: Pt's legs are feeling stronger, however, the right leg still seems a little behind the left side. Pt has been able to stand, walk, perform chores, and ADLs with less limitation. Pt still has notice short of breath but will discuss further with PCP. Pt will like to continue physical therapy to work on strength and balance. Objective: BLE AROM: all motions are WNL BLE MMTs: grossly 4-/5 Sit-Stand Test> 10 reps Sharpen Romber sec Assessment: Pt is slowly improving with BLE strength, balance, and overall endurance allowing her to start ADLs with less limitation. Pt has not met set goals in therapy and will continue to benefit from skilled physical therapy; thank you for your referrals. Plan: Continue with PT/POC Procedure Charges Therapeutic Exercise 30 minutes: Yes
--- NOTE | 2025-04-18 13:37 | PT.ODAYNRPT ---
PT Outpatient Daily Note OP Daily Note Outpatient Physical Therapy Treatment Date: 04/18/25 Visit Reasons: Bilateral leg pain Subjective: Pt reports feeling better and stronger. Objective: Please see flow sheet for ther ex list. Assessment: Pt demonstrates increase endurance indicated by less need for seated rest breaks during PT session. Plan: Continue with POC. Length of Time (minutes) of Treatment: 30 Minutes WALL CRANE OPERATOR Service Modifier Method I: Divide the number of min of care provided by the WALL CRANE OPERATOR/HEALTH SAFETY AND ENVIRONMENT MANAGER by the total min of care provided then multiply by 100. If greater than 11 percent modifier is required. Method II: Divide the total time of care provided to patient by 10 (round to the nearest whole number) and add 1 min. to set the minimum time requirement. If treatment total was 60 min., then 10% of 6 min PT CQ modifier applied: CQ Modifier applied Procedure Charges Therapeutic Exercise 30 minutes: Yes
--- NOTE | 2025-04-20 12:45 | PT.ODAYNRPT ---
PT Outpatient Daily Note OP Daily Note Outpatient Physical Therapy Treatment Date: 04/20/25 Visit Reasons: Bilateral leg pain Subjective: Pt's balance, walking, and overall strength has improved. Pt seen neurologist yesterday and is content with her progress. Objective: Please see flow chart for list of ther ex performed Assessment: continue to improve with dynamic balance and overall endurance. Pt is taking less rest break between each exercises as well as decrease SOB noted. Plan: Continue with PT Length of Time (minutes) of Treatment: 30 Minutes Procedure Charges Therapeutic Exercise 30 minutes: Yes
--- NOTE | 2025-04-25 12:49 | PT.ODAYNRPT ---
PT Outpatient Daily Note OP Daily Note Outpatient Physical Therapy Treatment Date: 04/25/25 Visit Reasons: Bilateral leg pain Subjective: Pt's legs are better but right leg continues to feel heavy. Pt mentioned she has difficulty with putting on her sock especially on the right LE. Objective: Please see flow chart for list of ther ex performed Assessment: added glute stretch to assist in order to start figure four stretch in the nex few session. Pt also demonstrate right LE lag with lateral step up exercise leading to decrease clearance Plan: Continue with PT Length of Time (minutes) of Treatment: 30 Minutes Procedure Charges Therapeutic Exercise 30 minutes: Yes
== END 2025-05-06 23:59 | disposition home or self-care (01) ==
LOC: CPTX 11:30
PROVIDERS: PCP Psychiatry & Neurology Neurology; Referring Provider Psychiatry & Neurology Neurology; Visit Provider Psychiatry & Neurology Neurology
DX: I69.344 Monoplegia of lower limb following cerebral infarction affecting left non-dominant side (principal); I69.341 Monoplegia of lower limb following cerebral infarction affecting right dominant side; R26.2 Difficulty in walking, not elsewhere classified; M25.562 Pain in left knee; M25.552 Pain in left hip
CPT/HCPCS: 97110

== ENCOUNTER 2025-06-01 11:30 | Outpatient (RCR) | payer MEDICARE, MEDICAID, SELFPAY ==
--- NOTE | 2025-05-09 15:37 | PTNOTE_ITS ---
PT Outpatient Daily Note OP Daily Note Outpatient Physical Therapy Treatment Date: 05/09/25 Visit Reasons: Bilateral leg pain Subjective: No new concenrns to report. Objective: Please see flow sheet for ther ex list. Assessment: Interventions given alternating sitting, standing and supine to maximize participation. Pt c/o LE sciatic pain modified position to accommodate pain. Plan: Continue with pOC. Length of Time (minutes) of Treatment: 30 Minutes LATIN AMERICAN STUDIES PROFESSOR Service Modifier Method I: Divide the number of min of care provided by the LATIN AMERICAN STUDIES PROFESSOR/JAQUELINE by the total min of care provided then multiply by 100. If greater than 11 percent modifier is required. Method II: Divide the total time of care provided to patient by 10 (round to the nearest whole number) and add 1 min. to set the minimum time requirement. If treatment total was 60 min., then 10% of 6 min PT CQ modifier applied: CQ Modifier applied Procedure Charges Therapeutic Exercise 30 minutes: Yes
--- NOTE | 2025-05-15 11:39 | PT.ODAYNRPT ---
PT Outpatient Daily Note OP Daily Note Outpatient Physical Therapy Treatment Date: 05/15/25 Visit Reasons: Bilateral leg pain Subjective: Pt's walking is much better, however, still has trouble with balance. Pt wants to start working on balance. Objective: Please see flow chart for list of ther ex performed Assessment: cues to decrease use of hands and downward gaze with side step on airex and heel toe walking on airex. With practice Pt's dynamic balance improve with both exercises Plan: Continue with PT Length of Time (minutes) of Treatment: 30 Minutes Procedure Charges Therapeutic Exercise 30 minutes: Yes
--- NOTE | 2025-05-17 11:19 | PTNOTE_ITS ---
PT Outpatient Daily Note OP Daily Note Outpatient Physical Therapy Treatment Date: 05/17/25 Visit Reasons: Bilateral leg pain Subjective: No new concerns or complaints. Pt mentioned she has another doctor appointment has to be out early. Objective: Please see flow sheet for ther ex list. Assessment: Pt able to perform step up exercise with minimal single BENEFITS SPECIALIST RECRUITER. Plan: Continue with poC. Length of Time (minutes) of Treatment: 30 Minutes LINOLEUM TILE LAYER Service Modifier Method I: Divide the number of min of care provided by the LINOLEUM TILE LAYER/AUTO WASHER by the total min of care provided then multiply by 100. If greater than 11 percent modifier is required. Method II: Divide the total time of care provided to patient by 10 (round to the nearest whole number) and add 1 min. to set the minimum time requirement. If treatment total was 60 min., then 10% of 6 min PT CQ modifier applied: CQ Modifier applied Procedure Charges Therapeutic Exercise 15 minutes: Yes
--- NOTE | 2025-06-01 12:45 | PTNOTE_ITS ---
PT OP Progress/Discharge Note Date of Service: 06/01/25 Progress Note/DC Note Progress Note/Discharge Note: DC Note Patient Information Visit Reasons: Bilateral leg pain Medical Diagnosis: I63.9 Treatment Dx #1: BLE Weakness Treatment Dx #2: Difficulty Walking Service Discharge Date: 06/01/25 Status Subjective: Pt mentioned overall she's doing much better. Pt has been able to stand, walk, p erform chores, and ADLs with less limitation. Pt no longer use assistance device to assist with mobility activities. Lately Pt's left knee has been hurting and plans to follow up with PCP for further consultation. Objective: BLE AROM: all motions are WFL BLE MMTs: grossly 4-/5 Sit-Stand Test: 10 reps Sharpen Romber sec Assessment: Pt demonstrate functional BLE mobility and strength allowing perform ADLs, ambulation, and activities with minimal limitation. At this time Pt will no longer benefit from physical therapy due to plateau towards goals. Pt was instructed to dollow up with PCP regarding left knee pain concerns. Pt was instructed on HEP last session and educated to continue exercises to maintian overall mobility. Pt performed all exercises safely, thank you for your referrals. Plan: D/C home with HEP and follow up with MD BRADEN Procedure Charges Therapeutic Exercise 30 minutes: Yes
== END 2025-06-06 23:59 | disposition home or self-care (01) ==
LOC: CPTX 11:30
PROVIDERS: PCP Psychiatry & Neurology Neurology; Referring Provider Psychiatry & Neurology Neurology; Visit Provider Psychiatry & Neurology Neurology
DX: I69.354 Hemiplegia and hemiparesis following cerebral infarction affecting left non-dominant side (principal); I69.351 Hemiplegia and hemiparesis following cerebral infarction affecting right dominant side; R26.2 Difficulty in walking, not elsewhere classified; R26.89 Other abnormalities of gait and mobility; M25.562 Pain in left knee; M25.552 Pain in left hip
CPT/HCPCS: 97110